=== PATIENT | male | born 1975 | race Two or more races ===

== ENCOUNTER 2021-03-30 13:31 | Emergency (ER) | payer OTHER ==
[~2021-03-30] VITALS: Ht 170.2 cm; Wt 92.0 kg
[2021-03-30] MEDS ORDERED: IV NORMAL SALINE 1,000ML 1,000 ML IV SCH (13:45)
[2021-03-30] MEDS ORDERED: ZIPRASIDONE IM 20 MG VIAL. IM ONE (14:15)
[2021-03-30 14:23] LABS: BASO % 1 % (0-3); EOS # 0.1 x10^3/uL (0.0-0.7); EOS % 2 % (0-3); HEMATOCRIT 48.3 % (39.0-53.0); HEMOGLOBIN 16.9 g/dL (13.0-17.5); LYMPH # 0.9 x10^3/uL (1.0-4.8); LYMPH % 13 % (24-48); MEAN CORPUSCULAR HEMOGLOBIN 30 pg (25-35); MEAN CORPUSCULAR HGB CONC 35 g/dL (31-37); MEAN CORPUSCULAR VOLUME 86 fL (79-100); MONO # 0.5 x10^3/uL (0.0-1.1); MONO % 7 % (0-9); NEUT # 5.9 x10^3uL (1.8-7.7); NEUT % 78 % (31-73); PLATELET COUNT 180 x10^3/uL (140-400); RED CELL DISTRIBUTION WIDTH 14.5 % (11.5-14.5); WHITE BLOOD COUNT 7.5 x10^3/uL (4.0-11.0)
[2021-03-30 14:34] LABS: CALCIUM 9.3 mg/dL (8.5-10.1); CREATININE 1.3 mg/dL (0.7-1.3); GFR 58.9; POTASSIUM 3.6 mmol/L (3.5-5.1)
[2021-03-30 14:41] LABS: ALBUMIN 4.5 g/dL (3.4-5.0); ALBUMIN/GLOBULIN RATIO 1.5 (1.0-1.7); MAGNESIUM 2.5 mg/dL (1.8-2.4); TOTAL BILIRUBIN 2.6 mg/dL (0.2-1.0); TOTAL PROTEIN 7.5 g/dL (6.4-8.2)
[2021-03-30 14:47] LABS: ACETAMIN < 2.0 mcg/mL (10-30); ETHANOL < 10 mg/dL (0-10); SALIC < 2.8 mg/dL (2.8-20.0)
--- NOTE | 2021-03-30 15:53 | PHYS DOC ---
Past History Past Medical History: No Pertinent History Past Medical History Limited secondary to altered mental status/agitation Past Surgical History: No Surgical History Past Surgical History Limited secondary to altered mental status/agitation Smoking: Cigarettes Alcohol Use: None Drug Use: Cocaine Social History Limited secondary to altered mental status/agitation General Adult EDM: Chief Complaint: DRUG ABUSE HPI: HPI: 46-year-old male presents via EMS with report of agitation after 4-day history of using "crack cocaine ". Patient reports he is unable to control himself and is having shortness of air as well as leg spasms. Patient denies suicidal ideation. Patient reports several year history of drug abuse to crack cocaine. History of present illness limited secondary to altered mental status/agitation Review of Systems: Review of Systems: Review of systems limited secondary to altered mental status/drug abuse Current Medications: Current Meds: Current Medications Medications (Trade) Dose Ordered Sig/Beto Start Time Stop Time Status Last Admin Dose Admin Lorazepam (Ativan Inj) 2 mg 1X ONCE 03/30/21 15:30 03/30/21 15:31 DC 03/30/21 15:19 2 MG Sodium Chloride 1,000 ml @ 1,000 mls/hr Q1H 03/30/21 13:45 03/30/21 14:44 DC 03/30/21 13:56 1,000 MLS/HR Ziprasidone (Geodon Im) 20 mg 1X ONCE 03/30/21 14:15 03/30/21 14:16 DC 03/30/21 14:11 20 MG Allergies: Allergies: Allergies Coded Allergies Type Severity Reaction Last Updated Verified No Known Drug Allergies 03/30/21 No Physical Exam: PE: Constitutional: Well developed, well nourished, agitated HENT: Normocephalic, atraumatic Eyes: Pupils pinpoint, EOMI, conjunctiva normal, no discharge Neck: Normal range of motion, supple Lungs & Thorax: No respiratory distress, equal chest rise and fall, lungs clear to auscultation bilaterally Cardiovascular: Tachycardia, normal heart sounds Abdomen: Soft, no tenderness Skin: Warm, dry, no erythema, no rash Extremities: No tenderness, ROM intact, no edema Neurologic: Alert and oriented X name and place only, no focal deficits noted Psychologic: Affect agitated, judgment abnormal Current Patient Data: Labs: Laboratory Tests Test 03/30/21 13:53 White Blood Count 7.5 x10^3/uL (4.0-11.0) Red Blood Count 5.60 x10^6/uL (4.30-5.70) Hemoglobin 16.9 g/dL (13.0-17.5) Hematocrit 48.3 % (39.0-53.0) Mean Corpuscular Volume 86 fL (79-100) Mean Corpuscular Hemoglobin 30 pg (25-35) Mean Corpuscular Hemoglobin Concent 35 g/dL (31-37) Red Cell Distribution Width 14.5 % (11.5-14.5) Platelet Count 180 x10^3/uL (140-400) Neutrophils (%) (Auto) 78 % (31-73) H Lymphocytes (%) (Auto) 13 % (24-48) L Monocytes (%) (Auto) 7 % (0-9) Eosinophils (%) (Auto) 2 % (0-3) Basophils (%) (Auto) 1 % (0-3) Neutrophils # (Auto) 5.9 x10^3uL (1.8-7.7) Lymphocytes # (Auto) 0.9 x10^3/uL (1.0-4.8) L Monocytes # (Auto) 0.5 x10^3/uL (0.0-1.1) Eosinophils # (Auto) 0.1 x10^3/uL (0.0-0.7) Basophils # (Auto) 0.0 x10^3/uL (0.0-0.2) Sodium Level 129 mmol/L (136-145) L Potassium Level 3.6 mmol/L (3.5-5.1) Chloride Level 93 mmol/L (98-107) L Carbon Dioxide Level 15 mmol/L (21-32) L Anion Gap 21 (6-14) H Blood Urea Nitrogen 13 mg/dL (8-26) Creatinine 1.3 mg/dL (0.7-1.3) Estimated GFR (Cockcroft-Gault) 58.9 BUN/Creatinine Ratio 10 (6-20) Glucose Level 217 mg/dL (70-99) H Calcium Level 9.3 mg/dL (8.5-10.1) Magnesium Level 2.5 mg/dL (1.8-2.4) H Total Bilirubin 2.6 mg/dL (0.2-1.0) H Aspartate Amino Transferase (AST) 43 U/L (15-37) H Alanine Aminotransferase (ALT) 45 U/L (16-63) Alkaline Phosphatase 77 U/L (46-116) Total Protein 7.5 g/dL (6.4-8.2) Albumin 4.5 g/dL (3.4-5.0) Albumin/Globulin Ratio 1.5 (1.0-1.7) Salicylates Level < 2.8 mg/dL (2.8-20.0) L Salicylate Last Dose Date Unk Salicylate Last Dose Time Unk Acetaminophen Level < 2.0 mcg/mL (10-30) L Acetaminophen Last Dose Date Unk Acetaminophen Last Dose Time Unk Ethyl Alcohol Level < 10 mg/dL (0-10) Vital Signs: Vital Signs Date Time Temp Pulse Resp B/P (MAP) Pulse Ox O2 Delivery O2 Flow Rate FiO2 03/30/21 13:43 97.9 116 22 103/62 (76) 96 Room Air EKG: EKG: @1550 Sinus tachycardia at 109bpm, NO ST elevation, QRS 80ms, QT/QTc 352/476ms, Q wave III Radiology/Procedures: Radiology/Procedures: [] Heart Score: C/O Chest Pain: N/A Course & Med Decision Making: Course & Med Decision Making Pertinent Lab studies reviewed. (See chart for details) Patient presents via EMS with concern for possible drug overdose. Patient reports he has been abusing crack cocaine for the past 4 days. Patient is agitated and voluntarily slamming his legs down onto a gurney. Patient not following commands as directed. Denies any suicidal ideation. Patient requesting benzodiazepines. Initial dose of Ativan without significant improvement of symptoms. Decision to allow patient to sober. IM Geodon and 2 mg of IV Ativan provided. Patient became somnolent and rested in emergency department. Monitoring and frequent checks utilized. Patient subsequently became clinically sober requesting something to eat and drink. Patient eating and drinking in department without difficulty. Patient without agitation at this time. Patient stable for discharge with outpatient follow-up with PCP/drug rehab. [facility] number provided to patient. Discussed findings and plan with patient, who acknowledges understanding and agreement. Adiel Disclaimer: Adiel Disclaimer: This electronic medical record was generated, in whole or in part, using a voice recognition dictation system. Departure Departure: Impression: Primary Impression: Drug addiction Additional Impression: History of cocaine abuse Disposition: 01 HOME / SELF CARE / HOMELESS Condition: STABLE Referrals: PCPDAVIS (PCP) Patient Instructions: Alcohol and Drug Addiction, Finding Treatment, Cocaine Abuse and Chemical Dependency Additional Instructions: Please call [facility] at to seek help for your mental health and/or drug/alcohol abuse. HALLIE JERRY DO Mar 30, 2021 15:53
--- NOTE | 2021-03-30 20:36 | EKG ---
[address] [address] Test Date: 2021-03-30 Test Time: 13:58:10 Pat Name: KARY LINCOLN Department: Room: Gender: M Wall Taper: ANG : 1975 Requested By: HALLIE JERRY Order Number: [id number] Reading MD: Shaquille Sandoval Measurements Intervals [place] Rate: 109 P: 36 UT: 146 QRS: 36 QRSD: 80 T: 36 QT: 352 QTc: 476 Interpretive Statements SINUS TACHYCARDIA MILD NON SPECIFIC ST CHANGES Electronically Signed On 03-31-2021 12:32:40 BATTERY HAND by Shaquille Sandoval
[2021-03-30 23:32] VITALS: BP 122/75
[2021-03-30 23:48] LABS: BARBITURATES NEG (NEG); BENZODIAZEPINES NEG (NEG); CANNABINOIDS NEG (NEG); COCAINE POS (NEG); METHADONE NEG (NEG); OPIATES NEG (NEG); PHENCYCLIDINE NEG (NEG)
[2021-03-30 23:51] LABS: CLARITY,URINE CLEAR; COLOR,URINE YELLOW
[2021-03-30 23:52] LABS: BACTERIA,URINE 0 /HPF (0-FEW); BILIRUBIN,URINE SMALL (NEG); GLUCOSE,URINE >=1000 mg/dL (NEG); NITRITE,URINE NEG (NEG); RBC,URINE 0 /HPF (0-2); SQUAMOUS EPITHELIAL CELL,UR FEW /LPF; UROBILINOGEN,URINE 0.2 mg/dL (0.2 mg/dL); WBC,URINE 0 /HPF (0-4)
[2021-03-30 23:53] LABS: AMPHETAMINE/METHAMPHETAMINE NEG (NEG)
== END 2021-03-30 23:35 | disposition home or self-care (01) ==
LOC: ER 13:31
DX: F19.20 Other psychoactive substance dependence, uncomplicated (principal); F17.210 Nicotine dependence, cigarettes, uncomplicated; F14.10 Cocaine abuse, uncomplicated
CPT/HCPCS: 36415; 80053; 80307; 80329; 81001; 83735; 85025; 93005; 96361; 96372; 96374; 96376; 99285; G0480; J2060; J3486; J7030